=== PATIENT | male | born 1985 | race Caucasian/White ===

== ENCOUNTER 2022-02-20 01:50 | Observation (INO) | payer OTHER ==
[2022-02-20 02:31] LABS: Absolute Lymphocytes (CBC) 2.7 K/uL (0.7-4.9); Hematocrit 42.5 % (39.6-49.0); Lymphocytes % 35.9 % (15.3-44.8); MCV 86.6 fL (80-100); MPV 8.5 fL (7.6-11.3); RBC Red Blood Cell Count 4.91 M/uL (4.33-5.43)
[2022-02-20] MEDS ORDERED: HYDROMORPHONE HCL 1 MG/ML INJ ONE ×2 (02:38→20:30)
[2022-02-20] MEDS ORDERED: ONDANSETRON 4 MG/2 ML VIAL ONE ×3 (02:38→19:48)
[2022-02-20] MEDS ORDERED: NA CHLORIDE 0.9% 0 ML ONE (02:39)
[2022-02-20] MEDS ORDERED: PIPERACIL/TAZO 3.375 GM VIAL IV ONE (02:39)
[2022-02-20] MEDS ORDERED: NA CHLORIDE 0.9% 1,000 ML ONE (02:39)
[2022-02-20 02:54] LABS: Albumin 4.1 g/dL (3.4-5.0); Bilirubin Total 0.3 mg/dL (0.2-1.0); Protein, Total 7.6 g/dL (6.4-8.2)
[2022-02-20 03:22] LABS: SARS-CoV-2 Antigen Rapid Res Negative (Negative)
--- NOTE | 2022-02-20 04:05 | EDPHYS ---
Physician Documentation [facility] Name: Matt Santos Age: 36 yrs Sex: Male : 1985 Arrival Date: 02/20/2022 Time: 01:52 Bed 13 Private MD: ED Physician Patrick Pulliam HPI: 02/20 03:58 This 36 yrs old Male presents to ER via Ambulatory with complaints of joel Abdominal Pain, Back Pain. 03:58 The patient presents with pain that is acute. joel 03:59 The patient presents with abdominal pain in the upper abdomen, in the right upper joel quadrant. Onset: The symptoms/episode began/occurred just prior to arrival. The symptoms are located in the right subscapular area, left mid back and right mid back. Onset: The symptoms/episode began/occurred today, last night. The pain radiates to the right subscapular area and right mid back. Associated signs and symptoms: Pertinent positives: abdominal pain. Modifying factors: The patient symptoms are alleviated by nothing, the patient symptoms are aggravated by any movement. Severity of symptoms: At their worst the symptoms were moderate, in the emergency department the symptoms are unchanged. Historical: - Allergies: 02:06 Sulfa (Sulfonamide Antibiotics); tw5 02:06 Bactrim; tw5 - PSHx: 02:06 Appendectomy; hernia repair; tw5 - Immunization history:: Flu vaccine is not up to date. - Social history:: Smoking status: Patient denies any tobacco usage or history of. - Family history:: not pertinent. ROS: 03:59 Constitutional: Negative for fever, chills, and weight loss, Eyes: Negative for injury, joel pain, redness, and discharge, ENT: Negative for injury, pain, and discharge, Neck: Negative for injury, pain, and swelling, Cardiovascular: Negative for chest pain, palpitations, and edema, Respiratory: Negative for shortness of breath, cough, wheezing, and pleuritic chest pain, Back: Negative for injury and pain, : Negative for injury, bleeding, discharge, and swelling, MS/Extremity: Negative for injury and deformity, Skin: Negative for injury, rash, and discoloration, Neuro: Negative for headache, weakness, numbness, tingling, and seizure, Psych: Negative for depression, anxiety, suicide ideation, homicidal ideation, and hallucinations, Allergy/Immunology: Negative for hives, rash, and allergies, Endocrine: Negative for neck swelling, polydipsia, polyuria, polyphagia, and marked weight changes, Hematologic/Lymphatic: Negative for swollen nodes, abnormal bleeding, and unusual bruising. 03:59 Abdomen/GI: Positive for abdominal pain, nausea and vomiting, of the epigastric area, posterior aspect of right lateral abdomen and right upper quadrant. 03:59 MS/extremity: Negative for acute changes. Exam: 03:59 Constitutional: This is a well developed, well nourished patient who is awake, alert, joel and in no acute distress. Head/Face: Normocephalic, atraumatic. Eyes: Pupils equal round and reactive to light, extra-ocular motions intact. Lids and lashes normal. Conjunctiva and sclera are non-icteric and not injected. Cornea within normal limits. Periorbital areas with no swelling, redness, or edema. ENT: Nares patent. No nasal discharge, no septal abnormalities noted. Tympanic membranes are normal and external auditory canals are clear. Oropharynx with no redness, swelling, or masses, exudates, or evidence of obstruction, uvula midline. Mucous membranes moist. Neck: Trachea midline, no thyromegaly or masses palpated, and no cervical lymphadenopathy. Supple, full range of motion without nuchal rigidity, or vertebral point tenderness. No Meningismus. Chest/axilla: Normal chest wall appearance and motion. Nontender with no deformity. No lesions are appreciated. Cardiovascular: Regular rate and rhythm with a normal S1 and S2. No gallops, murmurs, or rubs. Normal PMI, no JVD. No pulse deficits. Respiratory: Lungs have equal breath sounds bilaterally, clear to auscultation and percussion. No rales, rhonchi or wheezes noted. No increased work of breathing, no retractions or nasal flaring. Back: No spinal tenderness. No costovertebral tenderness. Full range of motion. Male : Normal genitalia with no discharge or lesions. Skin: Warm, dry with normal turgor. Normal color with no rashes, no lesions, and no evidence of cellulitis. MS/ Extremity: Pulses equal, no cyanosis. Neurovascular intact. Full, normal range of motion. Neuro: Awake and alert, GCS 15, oriented to person, place, time, and situation. Cranial nerves II-XII grossly intact. Motor strength 5/5 in all extremities. Sensory grossly intact. Cerebellar exam normal. Normal gait. Psych: Awake, alert, with orientation to person, place and time. Behavior, mood, and affect are within normal limits. 03:59 Abdomen/GI: Inspection: distension, that is mild, Bowel sounds: normal, Palpation: mild abdominal tenderness, in the right upper quadrant, Liver: no appreciated palpable abnormalities, Hernia: not appreciated. Vital Signs: 02:04 BP 153 / 95; Pulse 63; Resp 18; Temp 98.1; Pulse Ox 100% on R/A; Weight 90.72 kg; tw5 Height 5 ft. 6 in. (167.64 cm); Pain 5/10; 06:22 BP 119 / 67; Pulse 70; Resp 14; Pulse Ox 98% on R/A; Pain 0/10; ja4 02:04 Body Mass Index 32.28 (90.72 kg, 167.64 cm) tw5 MDM: 02:08 Patient medically screened. [facility] 04:01 Differential diagnosis: Cholelithiasis Obesity Peptic Ulcer Ureterolithiasis bowel joel obstruction, cholecystitis, non-specific abd pain, pancreatitis, Peptic Ulcer Disease, Perf. Duodenal Ulcer, Pyelonephritis, Ureterolithiasis, urinary tract infection. Data reviewed: vital signs, nurses notes, lab test result(s), radiologic studies, CT scan, plain films, ultrasound. Data interpreted: monitor worker: not applicable for this patient encounter. rate is 63 beats/min, rhythm is regular, Pulse oximetry: on room air. Test interpretation: by ED physician or midlevel provider: plain radiologic studies. Counseling: I had a detailed discussion with the patient and/or guardian regarding: the historical points, exam findings, and any diagnostic results supporting the discharge/admit diagnosis, lab results, radiology results, the need for further work-up and treatment in the hospital. 02/20 02:10 Order name: CBC with Diff; Complete Time: 03:51 [facility] 02/20 02:10 Order name: CMP; Complete Time: 03:51 [facility] 02/20 02:10 Order name: Lipase; Complete Time: 03:51 [facility] 02/20 02:10 Order name: Abdomen Limited US joel 02/20 02:10 Order name: CT Abd/Pelvis - IV Contrast Only [facility] 02/20 02:27 Order name: SARS RAPID; Complete Time: 03:51 [facility] 02/20 02:10 Order name: IV Saline Lock [facility] 02/20 02:10 Order name: Labs collected and sent [facility] 02/20 02:10 Order name: Urine Dipstick-Ancillary (obtain specimen) [facility] Administered Medications: 02:36 Drug: NS 0.9% 1000 ml Route: IV; Rate: 1 bolus; Site: right antecubital; ja4 02:36 Drug: Zosyn (piperacillin-tazobactam) 3.375 grams Route: IVPB; Infused Over: 60 mins; ja4 Site: right antecubital; 02:36 Drug: Dilaudid (HYDROmorphone) 1 mg Route: IVP; Site: right antecubital; ja4 02:36 Drug: Zofran (Ondansetron) 4 mg Route: IVP; Site: right antecubital; ja4 02:37 Not Given (Duplicate Order): NS 0.9% 1000 ml IV at 1 bolus Per protocol; 1000 mL bolus ja4 Disposition Summary: 02/20/22 04:05 Hospitalization Ordered Hospitalization Status: Observation [facility] Provider: Jayesh Nelson cha Location: Telemetry/MedSurg (observation) joel Condition: Stable joel Problem: new joel Symptoms: have improved joel Bed/Room Type: Standard [facility] Room Assignment: 420(02/20/22 05:18) Diagnosis - Epigastric abdominal tenderness joel - Other cholelithiasis with obstruction joel Forms: - Medication Reconciliation Form joel - SBAR form joel Signatures: Dispatcher [employer] Patrick Lopez MD MD cha Garcia, Cindy, RN RN cg Wood, Tiffany [facility] Richie Deluna RN RN [email or web address] Corrections: (The following items were deleted from the chart) 02:07 02:06 Allergies: No Known Allergies; tw 02:07 02:06 Allergies: Aspirin; 05:18 04:05 [facility]
--- NOTE | 2022-02-20 04:05 | ER ---
Nurse's Notes [facility] Name: Matt Santos Age: 36 yrs Sex: Male : 1985 Arrival Date: 02/20/2022 Time: 01:52 Bed 13 Private MD: Diagnosis: Epigastric abdominal tenderness;Other cholelithiasis with obstruction Presentation: 02/20 02:04 Chief complaint: Patient states: "The pain in my stomach woke me up. My back hurts as tw5 well.". Coronavirus screen: Vaccine status: Patient reports being unvaccinated. Ebola Screen: Patient negative for fever greater than or equal to 101.5 degrees Fahrenheit, and additional compatible Ebola Virus Disease symptoms Patient denies exposure to infectious person. Patient denies travel to an Ebola-affected area in the 21 days before illness onset. Initial Sepsis Screen: Does the patient meet any 2 criteria? No. Patient's initial sepsis screen is negative. Does the patient have a suspected source of infection? No. Patient's initial sepsis screen is negative. Risk Assessment: Do you want to hurt yourself or someone else? Patient reports no desire to harm self or others. Onset of symptoms was February 20, 2022 at 00:30. 02:04 Method Of Arrival: Ambulatory tw5 02:04 Acuity: VERNA 3 tw5 Triage Assessment: 02:06 General: Appears uncomfortable, Behavior is calm, cooperative, appropriate for age. tw5 Pain: Complains of pain in right upper quadrant Pain radiates to right mid back Pain currently is 5 out of 10 on a pain scale. Historical: - Allergies: 02:06 Sulfa (Sulfonamide Antibiotics); tw5 02:06 Bactrim; tw5 - PSHx: 02:06 Appendectomy; hernia repair; tw5 - Immunization history:: Flu vaccine is not up to date. - Social history:: Smoking status: Patient denies any tobacco usage or history of. - Family history:: not pertinent. Screenin:08 Abuse screen: Denies threats or abuse. Denies injuries from another. Nutritional tw5 screening: No deficits noted. Tuberculosis screening: No symptoms or risk factors identified. Fall Risk None identified. Assessment: 02:06 General: Appears uncomfortable, obese. Pain: Complains of pain in abdomen Pain ja4 currently is 6 out of 10 on a pain scale. Quality of pain is described as Pain began Is continuous. GI: Abdomen is tender to palpation Guarding noted. 06:28 Reassessment: report given to ja4 Vital Signs: 02:04 BP 153 / 95; Pulse 63; Resp 18; Temp 98.1; Pulse Ox 100% on R/A; Weight 90.72 kg; tw5 Height 5 ft. 6 in. (167.64 cm); Pain 5/10; 06:22 BP 119 / 67; Pulse 70; Resp 14; Pulse Ox 98% on R/A; Pain 0/10; ja4 02:04 Body Mass Index 32.28 (90.72 kg, 167.64 cm) tw5 ED Course: 01:52 Patient arrived in ED. bp1 02:06 Triage completed. tw5 02:06 Arm band placed on left wrist. tw5 02:06 Bed in low position. Call light in reach. Side rails up X 1. ja4 02:06 No provider procedures requiring assistance completed. Inserted saline lock: 20 gauge [facility] in right antecubital area, using aseptic technique. 02:07 Richie Deluna, SYLVESTER is Primary Nurse. ja4 02:07 Patrick Pulliam MD is Attending Physician. joel 02:58 Abdomen Limited US In Process Unspecified. EDMS 03:25 CT Abd/Pelvis - IV Contrast Only In Process Unspecified. EDMS 04:03 Jayesh Nelson MD is Hospitalizing Provider. joel Administered Medications: 02:36 Drug: NS 0.9% 1000 ml Route: IV; Rate: 1 bolus; Site: right antecubital; ja4 02:36 Drug: Zosyn (piperacillin-tazobactam) 3.375 grams Route: IVPB; Infused Over: 60 mins; ja4 Site: right antecubital; 02:36 Drug: Dilaudid (HYDROmorphone) 1 mg Route: IVP; Site: right antecubital; ja4 02:36 Drug: Zofran (Ondansetron) 4 mg Route: IVP; Site: right antecubital; ja4 02:37 Not Given (Duplicate Order): NS 0.9% 1000 ml IV at 1 bolus Per protocol; 1000 mL bolus ja4 Medication: 02:06 VIS not applicable for this client. ja4 Outcome: 04:05 Decision to Hospitalize by Provider. joel 07:31 Patient left the ED. bp Signatures: Dispatcher [employer] EDPatrick Medley MD MD cha Peltier, Brian RN RN Joanna Solis Tiffany [facility] Richie Deluna, SYLVESTER RN ja4 Corrections: (The following items were deleted from the chart) 02:07 02:06 Allergies: No Known Allergies; 02:07 02:06 Allergies: Aspirin; tw
[2022-02-20] MEDS ORDERED: ONDANSETRON 4 MG/2 ML VIAL IV PRN (05:14)
[2022-02-20] MEDS ORDERED: MORPHINE 4 MG/ML SYR IV PRN (05:14)
[2022-02-20] MEDS ORDERED: ACETAMINOPHEN 325 MG TABLET PO PRN (05:14)
[2022-02-20] MEDS: PIPER TAZO 3.375 GM in NA CHLORIDE 0.9% 100 ML IV SCH ×2 (08:49→16:14)
[2022-02-20] MEDS: FAMOTIDINE 20 MG/2 ML VIAL IV SCH ×2 (08:50→20:45)
[2022-02-20] MEDS: D5 0.45 NS 1,000 ML IV SCH ×3 (08:50→21:14)
[2022-02-20 09:14] VITALS: BMI 32.3
--- NOTE | 2022-02-20 16:27 | P.HP ---
Date of Service: 02/20/22 PC: This 36-year-old male presents the emergency room with severe right upper quadrant abdominal pain for diagnosis and treatment. HPC: Patient has been having intermittent right upper quadrant abdominal pain off and on for the last few months. Pain however intensified last night. Located up in the right upper quadrant. Came to the emergency room for evaluation PSHx: Says he had 19 surgeries, mostly orthopedic injuries. Has had an appendectomy. Concerned about a hypertrophic scar at his umbilicus. PMHx: Denies any medical issues Social Hx: Allergic to sulfa Sys R: No cough, wheeze, shortness of breath. No chest pain or palpitations. Denies any urinary complaints. [place]. O/E: Awake alert vital signs are stable HEENT: Nonicteric Chest: Chest movement equal bilaterally Abd: Tender in the right upper quadrant [place]: Intact Data: Has documented gallstones on ultrasound Impression: Cholecystitis with cholelithiasis, biliary colic Plan: I will taken the operating room for laparoscopic possible open cholecystectomy with a cholangiogram. The risks of this procedure have been discussed. The possibility of bleeding, infection, injury to bile ducts blood vessels and intestines has been described. The possible need for an open and or further surgeries and procedures was discussed. He understands and wants us to proceed.
[2022-02-20] MEDS ORDERED: Ringers Lactate 1,000 ML IV ONE ×2 (17:06→19:48)
[2022-02-20] MEDS ORDERED: propofoL 200 MG/20 ML VIAL IV ONE (17:28)
[2022-02-20] MEDS ORDERED: LIDOCAINE 2% MPF 5 ML VIAL ONE (17:28)
[2022-02-20] MEDS ORDERED: FENTANYL CITR 100 MCG/2 ML ONE ×2 (17:28→19:12)
[2022-02-20] MEDS ORDERED: KETOROLAC 30 MG/ML INJ ONE (17:29)
[2022-02-20] MEDS ORDERED: dexAMETHasone 10 MG/ML VIAL ONE (17:29)
[2022-02-20] MEDS ORDERED: ROCURONIUM 50 MG/5 ML VIAL IV ONE (17:29)
[2022-02-20] MEDS ORDERED: GLYCOPYRROLATE 0.2 MG/ML SYR ONE ×2 (18:27→18:29)
[2022-02-20] MEDS ORDERED: NEOSTIGMINE 1 MG/ML -10 ML VIAL ONE (19:12)
--- NOTE | 2022-02-20 19:37 | P.OP ---
Preoperative diagnosis: Cholecystitis with cholelithiasis, biliary colic Postoperative diagnosis: The same Primary procedure: Laparoscopic cholecystectomy Secondary procedure: Cholangiogram Anesthesia: General Estimated blood loss: Less than 10 cc Specimen: 1 gallbladder and contents Operative Technique: The patient brought the operating room and placed supine on the table. After t he induction of adequate general endotracheal anesthesia, the area of the abdomen was prepped with a DuraPrep solution, and draped in usual aseptic manner. Attention was turned towards the right side of the abdominal wall. Just lateral to the rectus muscle, a small skin incision was made. This brought down through the skin and subcutaneous tissue. The Veress needle was now used to enter the peritoneal cavity as verification be confirmed with a hanging drop. We then insufflated the abdomen under low pressure to created pneumoperitoneum. At this point we were able to insert a 5 mm trocar in this right abdominal wall incision. Under direct vision an 11 mm trocar was placed at the umbilicus, another 5 in the upper midline, and another 5 on the right lateral side of the abdominal wall. With the patient placed in reverse Trendelenburg and the table turned to the left we were able to visualize the right upper quadrant. We could see a markedly distended chronically inflamed gallbladder. It was necessary to aspirate the contents of the gallbladder so that we could place a grasper on the fundus. Having done this we were now able to place another down by Lama's pouch. Gentle dissection down which showed that the neck of the gallbladder was markedly dilated as was the cystic duct. In fact the cystic duct was almost 1 cm in size. At this point we dissected away to obtain the critical view. This involved a lot of dissection around the junction of the cystic duct with the gallbladder. We were finally able to ensure that we were on the cystic duct. A clip was placed between the gallbladder and the cystic duct and an opening was made into it. By watching the catheter down into the gallbladder were able to obtain a cholangiogram. The cholangiogram showed a markedly narrowed extrahepatic biliary tree in comparison to the dilated cystic duct and gallbladder that we had seen. There is most likely been chronic dilatation with the stones and increased pressure over the years that have caused this to dilate up. Having ensure that we were in the cystic duct, the catheter was now removed. It should be noted no filling defects were seen in the extrahepatic biliary tree. The cystic duct was now secured by using 2 chromic Endo ties as well as a clip placed across the cystic duct. These are 1 cm clips and we were able to get it to come flat and flush having initially crushed it with a dissector. The cystic duct was now fully transected. The cystic artery was identified clipped and divided. The gallbladder was now dissected free from the liver bed. At 1 point a large stone fell out through the opening where we had transected the cystic duct. This mulberry stone which attempted to retrieve after having freed the gallbladder. However it became lost in the omentum. The gallbladder was now placed into the Endo Catch and brought out through the umbilicus. Numerous attempts were made to find the stone we irrigated copiously in the right upper quadrant suctioned out on the right gutter however we were unable to find it. Attention was turned back towards the umbilicus. This area was now closed using the Endo Close and an absorbable suture. The pneumoperitoneum was collapsed, the sutures tied, and the trochars were removed. Junction were then applied to the skin At the end of the procedure the patient was in a stable condition was sent to the recovery room. Needle sponge and instrument count were correct. No drains were placed. Complications: None Transferred to: Recovery Room Condition: Good
[2022-02-20] MEDS: HYDROMORPHONE HCL 1 MG/ML INJ ONE ×2 (19:58→20:06)
[2022-02-20] MEDS ORDERED: HYDROCODONE/APAP 7.5/325 MG TAB PO PRN (20:03)
[2022-02-20] MEDS: MORPHINE 4 MG/ML SYR IV PRN (22:07)
--- NOTE | 2022-02-20 22:11 | RAD REPORT ---
EXAM DESCRIPTION: RAD - Fluoroscopy <1 Hour - 02/20/2022 9:57 pm CLINICAL HISTORY: Cholecystectomy FINDINGS: Three fluoroscopic spot images obtained. Fluoroscopy 0.3 minutes Cystic duct was cannulated and contrast administered. Contrast flowed into the common bile duct and d uodenum. Procedure performed by Dr. Nelson
[2022-02-21] MEDS: PIPER TAZO 3.375 GM in NA CHLORIDE 0.9% 100 ML IV SCH ×2 (00:03→07:44)
[2022-02-21] MEDS: D5 0.45 NS 1,000 ML IV SCH ×2 (05:14→11:29)
[2022-02-21 06:15] LABS: Absolute Lymphocytes (CBC) 0.7 K/uL (0.7-4.9); Hematocrit 40.8 % (39.6-49.0); Lymphocytes % 7.5 % (15.3-44.8); MCV 87.2 fL (80-100); MPV 8.4 fL (7.6-11.3); RBC Red Blood Cell Count 4.69 M/uL (4.33-5.43)
[2022-02-21 06:33] LABS: Albumin 3.6 g/dL (3.4-5.0); Bilirubin Direct 0.2 mg/dL (0-0.2); Bilirubin Total 0.8 mg/dL (0.2-1.0); Potassium 4.2 mmol/L (3.5-5.1); Protein, Total 7.1 g/dL (6.4-8.2)
[2022-02-21] MEDS: FAMOTIDINE 20 MG/2 ML VIAL IV SCH (07:44)
--- NOTE | 2022-02-21 10:16 | RAD REPORT ---
EXAM DESCRIPTION: US - Abdomen Exam Limited - 02/20/2022 2:56 am CLINICAL HISTORY: The patient is 36 years old and is Male; ABD PAIN TECHNIQUE: Real-time ultrasound of the gallbladder fossa with image documentation. COMPARISON: None FINDINGS: GALLBLADDER: Multiple stones noted within the gallbladder neck with no gallbladder wall thickening or pericholecystic free fluid. Common bile duct measuring up to 0.2 cm in diameter. COMMON BILE DUCT: Unremarkable as visualized. No stones. No dilation. IMPRESSION: Cholelithiasis with no sonographic findings to suggest acute cholecystitis. If there is high clinical suspicion for acute cholecystitis, further if evaluation by HIDA scan could be performe d. Electronically signed by: cB Fam MD 02/20/2022 3:41 AM CDT Due to temporary technical issues with the PACS/Fluency reporting system, reports are being signed by the in house radiologists without review as a courtesy to insure prompt reporting. The interpreting radiologist is fully responsible for the content of the report.
--- NOTE | 2022-02-21 10:22 | RAD REPORT ---
EXAM DESCRIPTION: CT - Abdomen Pelvis W Contrast - 02/20/2022 6:32 am CLINICAL HISTORY: The patient is 36 years old and is Male; RLQ abdominal pain TECHNIQUE: Axial computed tomography images of the abdomen and pelvis with intravenous contrast. S agittal and coronal reformatted images were created and reviewed. This CT exam was performed using one or more of the following dose reduction techniques: automated exposure control, adjustment of t he mA and/or kV according to patient size, and/or use of iterative reconstruction technique. COMPARISON: None FINDINGS: LUNG BASES: Unremarkable. No mass. No consolidation. ABDOMEN: LIVER: Unremarkable. No mass. GALLBLADDER AND BILE DUCTS: Cholelithiasis. No ductal dilation. PANCREAS: Unremarkable. No mass. No ductal dilation. SPLEEN: Unremarkable. No splenomegaly. ADRENALS: Unremarkable. No mass. KIDNEYS AND URETERS: Tiny nonobstructive right-sided intrarenal stone. No renal cortical parenchyma l abnormality. No solid renal mass. STOMACH AND BOWEL: Unremarkable. No obstruction. No mucosal thickening. PELVIS: APPENDIX: Appendix is surgically absent. BLADDER: Unremarkable. No mass. REPRODUCTIVE: Unremarkable as visualized. ABDOMEN and PELVIS: INTRAPERITONEAL SPACE: Unremarkable. No free air. No significant fluid collection. BONES/JOINTS: No acute fracture. No dislocation. SOFT TISSUES: Unremarkable. VASCULATURE: Unremarkable. No abdominal aortic aneurysm. LYMPH NODES: Unremarkable. No enlarged lymph nodes. IMPRESSION: 1. No acute abnormality within the abdomen or pelvis. 2. Cholelithiasis. 3. Tiny nonobstructive right-sided intrarenal stone. Electronically signed by: Bc Fam MD 02/20/2022 3:47 AM CDT Due to temporary technical issues with the PACS/Fluency reporting system, reports are being signed by the in house radiologists without review as a courtesy to insure prompt reporting. The interpreting radiologist is fully responsible for the content of the report.
[2022-02-21 10:38] VITALS: O2SAT 95
[2022-02-21] MEDS: MORPHINE 4 MG/ML SYR IV PRN (11:25)
[2022-02-21 16:25] VITALS: BP 112/59; TEMP 97.6
== END 2022-02-21 17:10 | disposition home or self-care (01) ==
LOC: ER 01:50 → ERHOLD 04:12 → 4TH 07:12
PROVIDERS: ADMIT Surgery; ATTEND Surgery
PROC: 0FT44ZZ Resection of Gallbladder, Percutaneous Endoscopic Approach (ICD-10-PCS; principal; 2022-02-20 17:00)
DX: K80.10 Calculus of gallbladder with chronic cholecystitis without obstruction (principal); H91.90 Unspecified hearing loss, unspecified ear; Z88.2 Allergy status to sulfonamides; Z20.822 Contact with and (suspected) exposure to COVID-19
CPT/HCPCS: 47562; 85025 ×2; 80048; 36415 ×2; 80076; 88304; 83690 ×2; 80053; 74177; 76000; 76705; 94010; 96375; 96374; 99283; 87811; Q9967; J2704; J2710; J2543 ×5; J3010 ×2; J1100; J1170 ×2; G0378 ×4; J7799 ×2; J7120 ×2; J7030; J2405 ×4; J2001